=== PATIENT | female | born 1950 | race Caucasian/White ===

== ENCOUNTER 2018-06-17 11:34 | Emergency (ER) | payer MEDICARE, BC ==
[2018-06-17] MEDS ORDERED: traMADol TAB* 50 MG PO ONE (12:02)
--- NOTE | 2018-06-17 12:33 | RAD ---
INDICATION: Left clavicle trauma. TECHNIQUE: 2 views of the left clavicle were obtained. FINDINGS: There is a faint radiolucent line extending through the inferior lateral aspect of the clavicle on one view possibly representing a nondisplaced fracture. There is a comminuted impacted fracture of the proximal humerus. IMPRESSION: 1. COMMINUTED IMPACTED FRACTURE OF THE PROXIMAL HUMERUS. 2. POSSIBLE NONDISPLACED FRACTURE OF THE CLAVICLE.
--- NOTE | 2018-06-17 12:33 | RAD ---
HISTORY: fall onto L arm COMPARISONS: None VIEWS: 2, Frontal internal rotation and external rotation views of the left humerus FINDINGS: BONE DENSITY: There is diffuse osteopenia. BONES: There is a comminuted mildly impacted fracture of the proximal left humerus involving the greater tuberosity. JOINTS: There is advanced glenohumeral osteoarthritis. ALIGNMENT: There is no dislocation. SOFT TISSUES: Unremarkable. OTHER FINDINGS: None. IMPRESSION: 1. COMMINUTED IMPACTED FRACTURE OF THE PROXIMAL LEFT HUMERUS. 2. OSTEOPENIA. 3. OSTEOARTHRITIS.
--- NOTE | 2018-06-17 12:53 | ED ---
Upper Extremity Pain - HPI Summary HPI Summary: Patient is a 68-year-old female presenting to the ED 1 hour after falling to the left shoulder and right knee. Endorses a 5/10 pain to the mid shaft humeral area as well as the clavicle. Denies any pain on palpation over the shoulder. While she endorses pain to the right knee, she remains ambulatory, no ecchymosis is noted, ROM intact. Pulses +2 intact bilaterally. Denies any numbness or tingling. Denies any ecchymosis to the ipsilateral arm. No history of DVT or PE. She did not take any medications [employer]MENT [employer]. - History of Current Complaint Chief Complaint: EDExtremityUpper Stated Complaint: LT ARM INJURY Time Seen by Provider: 06/17/18 11:40 Hx Obtained From: Patient Mechanism Of Injury: Blunt Trauma Onset/Duration: Started Hours Ago Timing: Constant Severity Initially: Moderate Severity Currently: Moderate Pain Location: Shoulder, Arm Character: Aching Aggravating Factor(s): Movement, Lifting, Flexion Alleviating Factor(s): Nothing Associated Signs & Symptoms: Positive: Negative Related History: Dominant Hand Right - Risk Factors Non-Orthopedic Risk Factor: Negative DVT Risk Factors: Negative Septic Arthritis Risk Factor: Negative Compartment Syndrome Risk Factors: Pain - Allergies/Home Medications Allergies/Adverse Reactions: Allergies Allergy/AdvReac Type Severity Reaction Status Date / Time Sulfa (Sulfonamide Allergy Rash Verified 06/17/18 12:32 Antibiotics) Home Medications: Home Medications Amlodipine/Valsartan/Hcthiazid [Exforge Hct 5-160-12.5 mg] 1 tab PO DAILY [History Confirmed 06/17/18] PMH/Surg Hx/FS Hx/Imm Hx Previously Healthy: Yes - Surgical History Surgery Procedure, Year, and Place: cholecystectomy. 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 Bilat TKA - Immunization History Hx Pertussis Vaccination: No Immunizations Up to Date: Unable to Obtain/Confirm Infectious Disease History: No Infectious Disease History: Denies: Traveled Outside the [place] in Last 30 Days - Social History Occupation: Unemployed Lives: With Family Alcohol Use: Weekly Hx Substance Use: No Substance Use Type: Reports: None Hx Tobacco Use: No Smoking Status (MU): Never Smoked Tobacco Review of Systems Constitutional: Negative Negative: Fever, Chills, Fatigue, Skin Diaphoresis Negative: Palpitations, Chest Pain Negative: Shortness Of Breath, Cough Genitourinary: Negative Positive: no symptoms reported, see HPI - I Positive: Arthralgia Skin: Negative All Other Systems Reviewed And Are Negative: Yes Physical Exam Triage Information Reviewed: Yes Vital Signs On Initial Exam: Initial Vitals Temp Pulse Resp BP Pulse Ox 98.2 F 85 16 170/81 96 06/17/18 11:36 06/17/18 11:36 06/17/18 11:36 06/17/18 11:36 06/17/18 11:36 Vital Signs Reviewed: Yes Appearance: Positive: Well-Appearing, Well-Nourished Skin: Positive: Warm, Skin Color Reflects Adequate Perfusion Head/Face: Positive: Normal Head/Face Inspection Eyes: Positive: EOMI, KARLA, Conjunctiva Clear Neck: Positive: Supple, No Lymphadenopathy Respiratory/Lung Sounds: Positive: Clear to Auscultation, Breath Sounds Present Cardiovascular: Positive: RRR, Pulses are Symmetrical in both Upper and Lower Extremities Musculoskeletal: Positive: Pain @ - left midshaft humeral fx Neurological: Positive: Speech Normal Psychiatric: Positive: Affect/Mood Appropriate Diagnostics - Vital Signs Vital Signs Temp Pulse Resp BP Pulse Ox 06/17/18 11:36 98.2 F 85 16 170/81 96 - Laboratory Lab Statement: Any lab studies that have been ordered have been reviewed, and results considered in the medical decision making process. Course/Dx - Course Course Of Treatment: X-ray obtained of the humerus and clavicle which shows a impacted proximal humeral fracture with a possible nondisplaced fracture of the left clavicle. She is given tramadol 50 mg in the ED with good relief. She will be sent home with prescription for tramadol and will take ibuprofen intermittently. She will follow-up with Dr. Agosto. Sling is given and instructions for care. - Diagnoses Differential Diagnosis/HQI/PQRI: Positive: Fracture (Open), Fracture (Closed) Provider Diagnoses: Proximal humeral fracture - Physician Notifications Instructed by Provider To: Have Pt Call For Appt. - Dr Mustafa office Discharge - Sign-Out/Discharge Documenting (check all that apply): Patient Departure - Discharge Plan Condition: Stable Disposition: HOME Prescriptions: traMADol TAB* [Ultram*] 50 mg PO Q6H PRN #20 tab MDD 4 PRN Reason: Pain Patient Education Materials: Proximal Humerus Fracture (ED) Referrals: Karthik Owens MD [Primary Care Provider] - Tyree Mustafa MD [Medical Doctor] - Additional Instructions: Please follow up with Dr. Lara Tramadol up to four times daily for pain You may take ibuprofen intermittently - Billing Disposition and Condition Condition: STABLE Disposition: Home
[2018-06-17 13:34] VITALS: BP 147/86
== END 2018-06-17 12:53 | disposition home or self-care (01) ==
LOC: ED 11:34
DX: S42.202A Unspecified fracture of upper end of left humerus, initial encounter for closed fracture (principal); W19.XXXA Unspecified fall, initial encounter; Y92.9 Unspecified place or not applicable; M85.812 Other specified disorders of bone density and structure, left shoulder; M19.012 Primary osteoarthritis, left shoulder; Z88.2 Allergy status to sulfonamides
CPT/HCPCS: 99282; A9270-GY

== ENCOUNTER 2019-01-08 10:18 | Emergency (ER) | payer MEDICARE, BC ==
--- NOTE | 2019-01-08 11:01 | ED ---
Abdominal Pain/Female - HPI Summary HPI Summary: 68 year old F presenting to [facility] with a chief complaint of epigastric abdominal pain since 03:00 today. The patient rates the pain 6/10 in severity. Symptoms aggravated by nothing. Symptoms alleviated by nothing. Patient reports chills, dizziness, vomiting. She states she feels abdominal gas. Patient denies nausea, congestion, sore throat, fever. She denies abdominal distension. Patient has hx bowel obstruction. Patient's last bowel movement was this morning. - History of Current Complaint Chief Complaint: EDAbdPain Stated Complaint: ABD PAIN Time Seen by Provider: 01/08/19 10:50 Hx Obtained From: Patient Onset/Duration: Lasting Hours - 8, Still Present Timing: Constant Severity Currently: Moderate Pain Intensity: 6 Pain Scale Used: 0-10 Numeric Location: Epigastric Radiates: No Aggravating Factor(s): Nothing Alleviating Factor(s): Nothing Associated Signs and Symptoms: Positive: Negative - nausea, congestion, sore throat, fever, abdominal distension, Other: - reports chills, dizziness, vomiting, abdominal gas Allergies/Adverse Reactions: Allergies Allergy/AdvReac Type Severity Reaction Status Date / Time levofloxacin [From Levaquin] Allergy Itching Verified 01/08/19 10:36 Sulfa (Sulfonamide Allergy Rash Verified 01/08/19 10:36 Antibiotics) PMH/Surg Hx/FS Hx/Imm Hx Previously Healthy: No Endocrine/Hematology History: Denies: Hx Diabetes Cardiovascular History: Reports: Hx Hypertension Respiratory History: Denies: Hx Asthma - Surgical History Surgery Procedure, Year, and Place: cholecystectomy. 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 Bilat TKA. Gallbladder removed Infectious Disease History: No Infectious Disease History: Denies: Traveled Outside the [place] in Last 30 Days - Family History Known Family History: Positive: Other - Father had leukemia - Social History Alcohol Use: Weekly Hx Substance Use: No Substance Use Type: Reports: None Hx Tobacco Use: No Smoking Status (MU): Never Smoked Tobacco Review of Systems Positive: Chills. Negative: Fever ENT: Negative - congestion Negative: Sore Throat Gastrointestinal: Negative - abdominal distension Positive: Abdominal Pain, Vomiting, Other - Abdominal gas. Negative: Nausea Neurological: Negative - Dizziness All Other Systems Reviewed And Are Negative: Yes Physical Exam - Summary Physical Exam Summary: Appearance: The patient is well-nourished in no acute distress and in no acute pain. Skin: The skin is warm and dry and skin color reflects adequate perfusion. HEENT: The head is normocephalic and atraumatic. The pupils are equal and reactive. The conjunctivae are clear and without drainage. Nares are patent and without drainage. Mouth reveals moist mucous membranes and the throat is without erythema and exudate. The external ears are intact. The ear canals are patent and without drainage. The tympanic membranes are intact. Neck: The neck is supple with full range of motion and non-tender. There are no carotid bruits. There is no neck vein distension. Respiratory: Chest is non-tender. Lungs are clear to auscultation and breath sounds are symmetrical and equal. Cardiovascular: Heart is regular rate and rhythm. There is no murmur or rub auscultated. There is no peripheral edema and pulses are symmetrical and equal. Abdomen: Patient has hyperactive bowel sounds. She has large ventral hernia. She has mild diffuse tenderness. Musculoskeletal: There is no back tenderness noted. Extremities are non-tender with full range of motion. There is good capillary refill. There is no peripheral edema or calf tenderness elicited. Neurological: Patient is alert and oriented to person, place and time. The patient has symmetrical motor strength in all four extremities. Cranial nerves are grossly intact. Deep tendon reflexes are symmetrical and equal in all four extremities. Psychiatric: The patient has an appropriate affect and does not exhibit any anxiety or depression Triage Information Reviewed: Yes Vital Signs On Initial Exam: Initial Vitals Temp Pulse Resp BP Pulse Ox 98.4 F 82 16 102/72 98 01/08/19 10:23 01/08/19 10:23 01/08/19 10:23 01/08/19 10:23 01/08/19 10:23 Vital Signs Reviewed: Yes Diagnostics - Vital Signs Vital Signs Temp Pulse Resp BP Pulse Ox 01/08/19 10:23 98.4 F 82 16 102/72 98 - Laboratory Result Diagrams: 01/08/19 12:04 01/08/19 12:04 Lab Statement: Any lab studies that have been ordered have been reviewed, and results considered in the medical decision making process. - CT Abd/Pel CT Interpretation Completed By: Radiologist Summary of CT Findings: 1. THERE IS A LARGE ANTERIOR ABDOMINAL WALL HERNIA IN THE LOWER ABDOMEN WHICH HAS INCREASED SLIGHTLY IN SIZE CONTAINING SMALL BOWEL AND COLON. THE SMALL BOWEL APPEARS MODERATELY DISTENDED WITH AIR-FLUID LEVELS CONSISTENT WITH A PARTIAL OBSTRUCTION. 2. STATUS POST CHOLECYSTECTOMY. ED physician has reviewed this report. This report is only to be considered final once signed by the Provider(s) as displayed in the "<Electronically Signed by > " field (s). Absence of a. signature indicates the report is in a draft status and still needs to be finalized. In the event this document was created by someone other than the. signing Provider, the individual initiating the document will be listed in the "Entered by:" or "Dictated by:" [email or web address]. 2 of 2 Abdominal Pain Fem Course/Dx - Course Course Of Treatment: Ms. Dejesus presented with abdominal pain and decreased appetite. She's vomited a few times without any nausea. She believes she may have a small bowel obstruction as she has had them in the past. She has a large ventral hernia which she feels is gotten larger. She had some diffuse tenderness on arrival was nontoxic in appearance with stable vitals. Initial leukocytosis with 16,000 and and a noncontrasted CT scan showed early small bowel obstruction. I contacted surgery to come evaluate her however she began to feel much improved and by the time they got here her exam was unremarkable. She was able to take some by mouth here and passed gas. I will discharge her for follow-up. - Diagnoses Provider Diagnoses: Abdominal pain Discharge - Sign-Out/Discharge Documenting (check all that apply): Patient Departure - Discharge Patient Received Moderate/Deep Sedation with Procedure: No - Discharge Plan Condition: Stable Disposition: HOME Patient Education Materials: Abdominal Pain (ED) Referrals: Karthik Owens MD [Primary Care Provider] - 3 Days Additional Instructions: Follow up with your primary care provider in 3 days. Return to the Emergency Department for new or worsening symptoms. - Billing Disposition and Condition Condition: STABLE Disposition: Home - Attestation Statements Document Initiated by Lyndaibe: Yes Documenting Scribe: Claire Martinez Provider For Whom Mannie is Documenting (Include Credential): Marcos Scott MD Scribe Attestation: Claire Alexander, scribed for Marcos Scott MD on 01/08/19 at 2138. Scribe Documentation Reviewed: Yes Provider Attestation: The documentation as recorded by the Claire oleary accurately reflects the service I personally performed and the decisions made by me, Marcos Scott MD Status of Scribe Document: Viewed
[2019-01-08] MEDS ORDERED: NS 0.9% 1000 ML** 1,000 ML IV ONE (11:16)
[2019-01-08 12:17] LABS: ABS Basophils 0 10^3/ul (0-0.2); ABS Eosinophils 0 10^3/ul (0-0.6); ABS Lymphocytes 1.1 10^3/ul (1.0-4.8); ABS Monocytes 0.3 10^3/ul (0-0.8); ABS Neutrophils 14.7 10^3/ul (1.5-7.7); ABS Nucleated RBC 0 10^3/ul; Eosinophil % 0 %; Hematocrit 40 % (35-47); Hemoglobin 13.5 g/dl (12.0-16.0); Lymphocyte % 6.7 %; Mean Corpuscular HGB Conc 34 g/dl (31-36); Mean Corpuscular Hemoglobin 30 pg (27-31); Mean Corpuscular Volume 89 fL (80-97); Mean Platelet Volume 9.3 fL (7.4-10.4); Nucleated Red Blood Cells % 0; Platelet Count 177 10^3/ul (150-450); Red Blood Count 4.52 10^6/ul (4.00-5.40); Red Cell Distribution Width 14 % (10.5-15); White Blood Count 16.1 10^3/ul (3.5-10.8)
[2019-01-08 12:18] LABS: Influenza A Molecular NEGATIVE (Negative); Influenza B Molecular NEGATIVE (Negative)
[2019-01-08 12:38] LABS: Albumin 3.8 g/dL (3.2-5.2); Albumin/Globulin Ratio 1.2 (1-3); BUN/Creatinine Ratio 21.9 (8-20); C Reactive Protein 13.13 mg/L (<8.01); Calcium 9.5 mg/dL (8.6-10.3); EGFR African American 96.2 (>60); EGFR Non-African American 79.5 (>60); Globulin 3.1 g/dL (2-4); Potassium 3.8 mmol/L (3.5-5.0); Total Bilirubin 0.5 mg/dL (0.2-1.0); Total Protein 6.9 g/dL (6.4-8.9)
[2019-01-08 13:36] LABS: Urine Appearance Clear; Urine Bilirubin Negative (Negative); Urine Blood Negative (Negative); Urine Color Yellow; Urine Glucose Negative (Negative); Urine Ketones Negative (Negative); Urine Nitrite Negative (Negative); Urine Protein Negative (Negative); Urine Specific Gravity 1.015 (1.010-1.030); Urine Urobilinogen Negative (Negative)
[2019-01-08 15:09] VITALS: BP 143/71
--- NOTE | 2019-01-08 17:27 | CONS ---
CC: Dr. Maximilian Gonzalez* SURGICAL CONSULTATION NOTE: DATE OF CONSULT: 01/08/19 LOCATION: This patient was seen in the [facility] Emergency Department on , 01/08/19; Dr. Marcos Scott requested consultation. ATTENDING PHYSICIAN: Dr. Maximilian Gonzalez. CHIEF COMPLAINT: Abdominal pain associated with vomiting. HISTORY OF PRESENT ILLNESS: The patient is a 68-year-old morbidly obese female with a known large ventral hernia and history of multiple small bowel obstructions related to the hernia. She reports that she awakened at 3 o'clock this morning with abdominal pain specifically in the epigastric region, rating the severity 6/10; she took some Gas-X and then subsequently vomited approximately 5 times at home. She felt chilled and dizzy. She presented to the emergency department concerned that she had another small bowel obstruction. She did have a small formed stool this morning. There was no blood in the stool. She has not passed any flatus since last evening. White blood cell count was 16.1 with mild left shift, electrolytes were within normal limits, and screening for influenza A and B was negative. CAT scan of the abdomen and pelvis revealed a small hernia in the upper abdomen containing fat in the midline; a large lower abdominal hernia with approximately 10 cm diastasis of the rectus abdominis containing small bowel and colon; small bowel loops to the right of the hernia sac were moderately distended with air-fluid levels consistent with partial obstruction; no diverticulitis or colitis. The patient states that she has seen Dr. Garcia in the past for consideration of hernia repair and Dr. Garcia advised preoperative weight loss, which she is not currently interested in. In the emergency department, she received a liter of IV fluids. At the time that I saw the patient, she stated that she was pain- free, she has not had any further episodes of vomiting, she does not feel chilled, and she wishes to try some clear liquids and hopefully be discharged to home. PAST MEDICAL HISTORY: Significant for morbid obesity, multiple small bowel obstructions related to the abdominal hernia, hypertension. 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 MEDICATIONS: Amlodipine/valsartan/hydrochlorothiazide 1 tablet daily. ALLERGIES: Include LEVAQUIN and SULFONAMIDE ANTIBIOTICS. FAMILY HISTORY: Father had leukemia. SOCIAL HISTORY: She is ; she has never been a smoker. She occasionally drinks alcohol and denies the use of other substances. REVIEW OF SYSTEMS: Constitutional: She reported chills, but no fever at home. Endocrine: No diabetes or thyroid disease. Respiratory: No dyspnea on exertion. No chronic cough. Cardiovascular: No anginal chest pain or palpitations. Gastrointestinal: As described in history of present illness. Genitourinary: No current dysuria. Musculoskeletal: No current joint or back pain. Neurologic: No headache or blurred vision or areas of focal weakness. General: She does have a history of deep vein thrombosis and pulmonary embolism. No known anesthesia complications or bleeding tendencies. PHYSICAL EXAM: General Survey: The patient is a 68-year-old morbidly obese female, in no acute distress. Height 5 feet 7 inches, weight 250 pounds, body mass index 39.2. Blood pressure 102/72, pulse 82 and regular, respiratory rate 16, O2 saturation on room air 98%, temperature 98.4 tympanic. Skin: Warm and dry. HEENT: Benign. Neck: Supple. No cervical lymphadenopathy. Lungs: Breath sounds bilaterally clear and equal. Heart: Regular rate and rhythm. No murmurs or rubs appreciated. Abdomen: Hypoactive bowel sounds. Midline surgical scar. Large ventral hernia, not reducible, with overlying skin that is very thin with a few areas of excoriation. Nontender throughout. No guarding or rebound tenderness. Pelvic and rectal exams deferred. Extremities: Moves all 4 extremities. No edema. Neurologic: Alert and oriented x3. Steady gait. IMPRESSION: Resolving abdominal pain. PLAN: Plan was discussed with both Dr. Gonzalez and Dr. Dwain Scott; the patient wants to try clear liquids, and if she tolerates the liquids, she would like to be discharged home. TIME SPENT: Sixty minutes with greater than 60% in [id number] history taking , patient examination, and coordination of care. MADINA MALDONADO NP [id number]/CPS #: [id number] OCTAVIO
== END 2019-01-08 15:09 | disposition home or self-care (01) ==
LOC: ED 10:18
DX: R10.13 Epigastric pain (principal); Z88.2 Allergy status to sulfonamides; I10 Essential (primary) hypertension
CPT/HCPCS: 36415; 74176; 80053; 81003; 83605; 85025; 86140; 96360; 99283

== ENCOUNTER 2021-10-20 07:32 | Inpatient (IN) ==
[2021-10-20] MEDS ORDERED: Lactated Ringers 1000 ml BAG 1,000 ML IV ONE (07:48)
[2021-10-20] MEDS ORDERED: Ondansetron 4 mg VIAL 2 MG/ML 2 ml VIAL IV ONE (07:48)
[2021-10-20] MEDS ORDERED: Morphine 4 MG/ML VIAL (1 ml) IV ONE (07:48)
[2021-10-20 08:45] LABS: ABS Lymphocytes 1.7 10^3/ul (1.0-4.8); ABS Monocytes 0.7 10^3/ul (0-0.8); ABS Neutrophils 8.4 10^3/ul (1.5-7.7); Eosinophil % 0.3 %; Hematocrit 36 % (35-47); Hemoglobin 12.2 g/dL (12.0-16.0); Lymphocyte % 15.6 %; Mean Corpuscular HGB Conc 34 g/dL (31-36); Mean Corpuscular Hemoglobin 29 pg (27-31); Mean Corpuscular Volume 85 fL (80-97); Mean Platelet Volume 9.5 fL (7.4-10.4); Platelet Count 204 10^3/uL (150-450); Red Blood Count 4.24 10^6 /uL (3.70-4.87); Red Cell Distribution Width 14 % (10-15); White Blood Count 10.9 10^3/uL (3.5-10.8)
[2021-10-20 09:03] LABS: Albumin 3.7 g/dL (3.2-5.2); Anion Gap 10 mmol/L (2-11); Blood Urea Nitrogen 26 mg/dL (6-24); CO2 Carbon Dioxide 27 mmol/L (22-32); Calcium 9.3 mg/dL (8.6-10.3); Chloride 99 mmol/L (101-111); Glucose 127 mg/dL (70-100); Potassium 3.8 mmol/L (3.5-5.0); Sodium 136 mmol/L (135-145); Total Protein 6.8 g/dL (6.4-8.9); eGFR CKD-EPI 54.7 (>60)
[2021-10-20 09:04] LABS: ALT 17 U/L (7-52); AST 21 U/L (13-39); Albumin/Globulin Ratio 1.2 (1-3); Alkaline Phosphatase 77 U/L (35-149); C Reactive Protein 25.99 mg/L (<8.01); Globulin 3.1 g/dL (2-4); Lipase < 10 U/L (11.0-82.0)
[2021-10-20] MEDS ORDERED: Morphine 2 MG/ML SYRINGE IV PRN (10:24)
[2021-10-20] MEDS ORDERED: Ondansetron 4 mg VIAL 2 MG/ML 2 ml VIAL IV PRN (10:24)
[2021-10-20] MEDS: Enoxaparin 40 MG/0.4 ML SYR SUBCUT SCH (11:53)
[2021-10-20] MEDS: Acetaminophen IV 1 GM/100ML 100 ML IV PRN ×2 (13:31→22:49)
[2021-10-20] MEDS: Lactated Ringers 1000 ml BAG 1,000 ML IV SCH ×2 (13:31→20:49)
[2021-10-20 14:24] LABS: Rapid COVID-19 Molecular Undetected (Undetected)
[2021-10-21 05:33] LABS: ABS Eosinophils 0.3 10^3/ul (0-0.6); ABS Lymphocytes 2.2 10^3/ul (1.0-4.8); ABS Monocytes 0.6 10^3/ul (0-0.8); ABS Neutrophils 5.7 10^3/ul (1.5-7.7); Eosinophil % 3.1 %; Hematocrit 33 % (35-47); Hemoglobin 11.3 g/dL (12.0-16.0); Mean Corpuscular HGB Conc 34 g/dL (31-36); Mean Corpuscular Hemoglobin 29 pg (27-31); Mean Corpuscular Volume 86 fL (80-97); Mean Platelet Volume 9.5 fL (7.4-10.4); Platelet Count 173 10^3/uL (150-450); Red Blood Count 3.86 10^6 /uL (3.70-4.87); Red Cell Distribution Width 14 % (10-15); White Blood Count 8.9 10^3/uL (3.5-10.8)
[2021-10-21 05:51] LABS: Calcium 8.5 mg/dL (8.6-10.3); Potassium 3.3 mmol/L (3.5-5.0); eGFR CKD-EPI 56.5 (>60)
[2021-10-21] MEDS: Acetaminophen IV 1 GM/100ML 100 ML IV PRN ×3 (07:40→21:57)
[2021-10-21] MEDS: KCL 20 MEQ/100 ML IVPREMIX 20 MEQ/100 ML BAG IV SCH ×2 (08:34→10:53)
[2021-10-21] MEDS: D5LR 1000 ml BAG 1,000 ML IV SCH ×2 (08:34→18:15)
[2021-10-21] MEDS: Enoxaparin 40 MG/0.4 ML SYR SUBCUT SCH (10:53)
[2021-10-22 04:46] LABS: ABS Eosinophils 0.3 10^3/ul (0-0.6); ABS Lymphocytes 1.8 10^3/ul (1.0-4.8); ABS Monocytes 0.5 10^3/ul (0-0.8); ABS Neutrophils 4.1 10^3/ul (1.5-7.7); Eosinophil % 4.5 %; Hematocrit 32 % (35-47); Hemoglobin 11.1 g/dL (12.0-16.0); Mean Corpuscular HGB Conc 34 g/dL (31-36); Mean Corpuscular Hemoglobin 30 pg (27-31); Mean Corpuscular Volume 86 fL (80-97); Platelet Count 154 10^3/uL (150-450); Red Blood Count 3.74 10^6 /uL (3.70-4.87); Red Cell Distribution Width 14 % (10-15); White Blood Count 6.7 10^3/uL (3.5-10.8)
[2021-10-22 04:59] LABS: Calcium 8.5 mg/dL (8.6-10.3); Magnesium 2.1 mg/dL (1.9-2.7); Phosphorus 2.7 mg/dL (2.5-5.0); Potassium 3.5 mmol/L (3.5-5.0)
[2021-10-22] MEDS: D5LR 1000 ml BAG 1,000 ML IV SCH ×2 (05:06→16:07)
[2021-10-22] MEDS: Acetaminophen IV 1 GM/100ML 100 ML IV PRN ×2 (10:17→17:45)
[2021-10-22] MEDS: Enoxaparin 40 MG/0.4 ML SYR SUBCUT SCH (10:19)
[2021-10-23] MEDS: D5LR 1000 ml BAG 1,000 ML IV SCH (04:25)
[2021-10-23 05:35] LABS: ABS Eosinophils 0.4 10^3/ul (0-0.6); ABS Lymphocytes 1.9 10^3/ul (1.0-4.8); ABS Monocytes 0.5 10^3/ul (0-0.8); ABS Neutrophils 4.5 10^3/ul (1.5-7.7); Eosinophil % 5.2 %; Hematocrit 32 % (35-47); Hemoglobin 10.7 g/dL (12.0-16.0); Mean Corpuscular HGB Conc 33 g/dL (31-36); Mean Corpuscular Hemoglobin 29 pg (27-31); Mean Corpuscular Volume 86 fL (80-97); Mean Platelet Volume 9.3 fL (7.4-10.4); Platelet Count 151 10^3/uL (150-450); Red Blood Count 3.72 10^6 /uL (3.70-4.87); Red Cell Distribution Width 14 % (10-15); White Blood Count 7.3 10^3/uL (3.5-10.8)
[2021-10-23 05:59] LABS: Calcium 8.6 mg/dL (8.6-10.3); Potassium 3.5 mmol/L (3.5-5.0); eGFR CKD-EPI 95.7 (>60)
[2021-10-23] MEDS: Enoxaparin 40 MG/0.4 ML SYR SUBCUT SCH (11:18)
[2021-10-24 06:55] LABS: Potassium 3.8 mmol/L (3.5-5.0); eGFR CKD-EPI 94.3 (>60)
[2021-10-24 11:18] VITALS: BP 125/81
[2021-10-24] MEDS: Enoxaparin 40 MG/0.4 ML SYR SUBCUT SCH (11:45)
== END 2021-10-24 15:15 | disposition home or self-care (01) | DRG 390 ==
LOC: ED 07:32 → EDHOLD 07:32 → SUATTDRO 10:24 → SSU 19:02
PROVIDERS: ADMIT Internal Medicine; ATTEND Internal Medicine

== ENCOUNTER 2022-12-03 17:34 | Observation (INO) ==
[2022-12-03] MEDS ORDERED: Ondansetron ODT 4 mg TAB 4 MG TAB PO ONE (18:24)
[2022-12-03 19:42] LABS: ABS Basophils 0.1 10^3/ul (0-0.2); ABS Eosinophils 0.1 10^3/ul (0-0.6); ABS Lymphocytes 2.2 10^3/ul (1.0-4.8); ABS Monocytes 0.6 10^3/ul (0-0.8); ABS Neutrophils 14.9 10^3/ul (1.5-7.7); Eosinophil % 0.7 %; Hematocrit 42 % (35-47); Hemoglobin 14.1 g/dL (12.0-16.0); Lymphocyte % 12.1 %; Mean Corpuscular HGB Conc 34 g/dL (31-36); Mean Corpuscular Hemoglobin 29 pg (27-31); Mean Corpuscular Volume 86 fL (80-97); Mean Platelet Volume 9.6 fL (7.4-10.4); Platelet Count 221 10^3/uL (150-450); Red Blood Count 4.92 10^6 /uL (3.70-4.87); Red Cell Distribution Width 15 % (10-15); White Blood Count 17.9 10^3/uL (3.5-10.8)
[2022-12-03 20:17] LABS: Albumin 3.9 g/dL (3.2-5.2); Albumin/Globulin Ratio 1.3 (1-3); C Reactive Protein 11.72 mg/L (<8.01); Calcium 10.4 mg/dL (8.6-10.3); Total Bilirubin 0.6 mg/dL (0.2-1.0); Total Protein 6.9 g/dL (6.4-8.9); eGFR CKD-EPI 59.5 (>60)
[2022-12-03] MEDS ORDERED: Iodixanol (CONTRAST) 320 MG/ML 100 ML SDV IV ONE (20:18)
[2022-12-03 20:23] LABS: Potassium 4.2 mmol/L (3.5-5.0)
[2022-12-03] MEDS ORDERED: Lactated Ringers 1000 ml BAG 1,000 ML IV ONE ×3 (21:21→23:24)
[2022-12-03] MEDS ORDERED: Ondansetron 4 mg VIAL 2 MG/ML 2 ml VIAL IV ONE (21:23)
[2022-12-03] MEDS ORDERED: Ondansetron 4 mg VIAL 2 MG/ML 2 ml VIAL IV PRN (23:24)
[2022-12-03] MEDS ORDERED: Enoxaparin 40 MG/0.4 ML SYR SUBCUT ONE (23:39)
[2022-12-04 00:27] LABS: Urine Appearance Cloudy; Urine Bilirubin Negative (Negative); Urine Blood Negative (Negative); Urine Color Amber; Urine Glucose Negative (Negative); Urine Ketones Negative (Negative); Urine Nitrite Negative (Negative); Urine Protein Negative (Negative); Urine Urobilinogen Negative (Negative)
[2022-12-04 01:18] LABS: Urine Specific Gravity > 1.060 (1.002-1.030)
[2022-12-04 08:02] LABS: ABS Basophils 0.1 10^3/ul (0-0.2); ABS Eosinophils 0.1 10^3/ul (0-0.6); ABS Lymphocytes 2.4 10^3/ul (1.0-4.8); Eosinophil % 0.8 %; Hematocrit 37 % (35-47); Hemoglobin 12.4 g/dL (12.0-16.0); Lymphocyte % 17.5 %; Mean Corpuscular HGB Conc 34 g/dL (31-36); Mean Corpuscular Hemoglobin 29 pg (27-31); Mean Corpuscular Volume 85 fL (80-97); Mean Platelet Volume 9.2 fL (7.4-10.4); Platelet Count 195 10^3/uL (150-450); Red Blood Count 4.28 10^6 /uL (3.70-4.87); Red Cell Distribution Width 15 % (10-15); White Blood Count 13.5 10^3/uL (3.5-10.8)
[2022-12-04 09:00] LABS: Calcium 8.9 mg/dL (8.6-10.3); Magnesium 1.9 mg/dL (1.9-2.7); eGFR CKD-EPI 77.6 (>60)
[2022-12-04] MEDS: Acetaminophen IV 1 GM/100ML 1,000 MG/100 ML BAG IV PRN ×3 (09:04→23:19)
[2022-12-04] MEDS ORDERED: Lactated Ringers 1000 ml BAG 1,000 ML IV SCH (17:00)
[2022-12-05 10:53] VITALS: BP 97/62
== END 2022-12-05 16:00 | disposition home or self-care (01) ==
LOC: ED 17:34 → EDHOLD 17:34 → SUATTDRO 23:19 → EDHOLD 12-04 00:29 → MED 12-04 00:35
PROVIDERS: ADMIT Hospitalist; ATTEND Student in an Organized Health Care Education/Training Program

== ENCOUNTER 2023-10-07 17:47 | Observation (INO) ==
[2023-10-07] MEDS ORDERED: Lactated Ringers 1000 ml BAG 1,000 ML IV ONE (20:29)
[2023-10-07] MEDS ORDERED: Ondansetron 4 mg VIAL 2 MG/ML 2 ml VIAL IV ONE (20:29)
[2023-10-07] MEDS ORDERED: Ondansetron 4 mg VIAL 2 MG/ML 2 ml VIAL ONE (20:30)
[2023-10-07 20:51] LABS: ABS Basophils 0.3 10^3/uL (0.0-0.1); ABS Eosinophils 0.2 10^3/uL (0.0-0.5); ABS Lymphocytes 3.4 10^3/uL (1.0-4.8); ABS Monocytes 0.9 10^3/uL (0.0-0.9); ABS Nucleated RBC 0.01 10^3/ul; Hematocrit 40.8 % (35-45); Lymphocyte % 16.9 %; Mean Corpuscular Hemoglobin 29.6 pg (27-33); Mean Corpuscular Hgb Conc 34.2 g/dL (31-36); Mean Corpuscular Volume 86.6 fL (80-97); Mean Platelet Volume 9.2 fL (7.5-11.2); Nucleated Red Blood Cells % 0.1 %/100WBC (0.0-0.8); Platelet Count 226 10^3/uL (150-450); Red Blood Count 4.71 10^6/uL (3.63-4.92); Red Cell Distribution Width 14.5 % (12-17); White Blood Count 19.8 10^3/uL (3.8-11.8)
[2023-10-07 21:12] LABS: Albumin 3.9 g/dL (3.2-5.2); Albumin/Globulin Ratio 1.3 (1-3); C Reactive Protein 11.85 mg/L (<8.01); Calcium 9.8 mg/dL (8.6-10.3); Creatinine, Serum 0.85 mg/dL (0.51-0.95); Potassium 3.7 mmol/L (3.5-5.0); Total Bilirubin 0.5 mg/dL (0.2-1.0); Total Protein 6.9 g/dL (6.4-8.9); eGFR CKD-EPI 72.7 (>60)
[2023-10-07 21:29] LABS: Urine Appearance Cloudy; Urine Bilirubin Negative (Negative); Urine Blood Negative (Negative); Urine Color Amber; Urine Glucose Negative (Negative); Urine Ketones Trace (Negative); Urine Nitrite Negative (Negative); Urine Protein 2+(100 mg/dL) (Negative); Urine Specific Gravity 1.028 (1.002-1.030); Urine Urobilinogen Negative (Negative)
[2023-10-07] MEDS ORDERED: Iohexol 350 (CONTRAST) 500 ML MDV IV ONE (21:34)
[2023-10-07 21:36] LABS: Urine Bacteria 1+ (Absent); Urine Red Blood Cell 3+(>10/hpf) (Absent); Urine Squamous Epithelial Cell Present (Absent); Urine White Blood Cell 2+(11-20/hpf) (Absent)
[2023-10-07] MEDS ORDERED: Lactated Ringers 1000 ml BAG 1,000 ML IV SCH (23:45)
[2023-10-07] MEDS ORDERED: Morphine 2 MG/ML SYRINGE IV PRN (23:58)
[2023-10-07] MEDS ORDERED: HYDROmorphone 1 MG/1 ML SYRINGE IV SLOW PU PRN (23:59)
[2023-10-08] MEDS: Enoxaparin 40 MG/0.4 ML SYR SUBCUT SCH ×2 (00:14→21:36)
[2023-10-08] MEDS ORDERED: Ondansetron 4 mg VIAL 2 MG/ML 2 ml VIAL IV PRN (01:08)
[2023-10-08] MEDS ORDERED: LACTATED RINGERS 1000 ML BAG IV SCH (05:00)
[2023-10-08 09:24] LABS: ABS Eosinophils 0.2 10^3/uL (0.0-0.5); ABS Lymphocytes 2.1 10^3/uL (1.0-4.8); ABS Monocytes 0.7 10^3/uL (0.0-0.9); ABS Neutrophils 8.5 10^3/uL (1.5-7.6); Eosinophil % 2.2 %; Hematocrit 36.3 % (35-45); Hemoglobin 12.4 g/dL (11.5-14.3); Lymphocyte % 18.4 %; Mean Corpuscular Hgb Conc 34.2 g/dL (31-36); Mean Corpuscular Volume 87.6 fL (80-97); Mean Platelet Volume 9.3 fL (7.5-11.2); Platelet Count 177 10^3/uL (150-450); Red Blood Count 4.14 10^6/uL (3.63-4.92); Red Cell Distribution Width 14.4 % (12-17); White Blood Count 11.6 10^3/uL (3.8-11.8)
[2023-10-08] MEDS: Morphine 2 MG/ML SYRINGE IV PRN ×2 (09:53→21:46)
[2023-10-08 10:07] LABS: Creatinine, Serum 0.84 mg/dL (0.51-0.95); Potassium 3.7 mmol/L (3.5-5.0); eGFR CKD-EPI 73.8 (>60)
[2023-10-08] MEDS ORDERED: Diatrizoate Meg/Sod(CONTRAST) 30 ML ORAL.SOLN PO ONE (11:55)
[2023-10-09 06:42] LABS: ABS Eosinophils 0.7 10^3/uL (0.0-0.5); ABS Lymphocytes 2.6 10^3/uL (1.0-4.8); ABS Monocytes 0.6 10^3/uL (0.0-0.9); ABS Neutrophils 5.8 10^3/uL (1.5-7.6); ABS Nucleated RBC 0.01 10^3/ul; Eosinophil % 6.9 %; Hematocrit 34.9 % (35-45); Hemoglobin 11.9 g/dL (11.5-14.3); Lymphocyte % 26.8 %; Mean Corpuscular Hemoglobin 29.8 pg (27-33); Mean Corpuscular Hgb Conc 34.2 g/dL (31-36); Mean Corpuscular Volume 87.2 fL (80-97); Mean Platelet Volume 9.9 fL (7.5-11.2); Nucleated Red Blood Cells % 0.1 %/100WBC (0.0-0.8); Platelet Count 169 10^3/uL (150-450); Red Cell Distribution Width 14.3 % (12-17); White Blood Count 9.6 10^3/uL (3.8-11.8)
[2023-10-09 07:05] LABS: Calcium 8.1 mg/dL (8.6-10.3); Creatinine, Serum 0.85 mg/dL (0.51-0.95); Magnesium 1.8 mg/dL (1.9-2.7); Potassium 3.2 mmol/L (3.5-5.0); eGFR CKD-EPI 72.7 (>60)
[2023-10-09] MEDS ORDERED: Magnesium Sulfate 2 gm BAG 2 GM/50 ML BAG IVPB ONE (07:37)
[2023-10-09] MEDS: KCL 20 MEQ/100 ML IVPREMIX 20 MEQ/100 ML BAG IV SCH ×2 (09:25→12:55)
[2023-10-09 14:20] VITALS: BP 115/55
== END 2023-10-09 15:15 | disposition home or self-care (01) ==
LOC: EDHOLD 17:47 → ED 17:47 → SUATTDRO 23:55 → MEDTELE 10-08 02:15
PROVIDERS: ADMIT Internal Medicine; ATTEND Hospitalist